=== PATIENT | male | born 1980 | race Caucasian/White ===

== ENCOUNTER 2020-02-26 15:00 | Outpatient (RCR) | payer OTHER, SELFPAY | END 2020-03-23 14:56 | disposition home or self-care (01) | LOC: OT 15:00 | PROVIDERS: PCP Family Medicine; Visit Provider Orthopaedic Surgery Adult Reconstructive Orthopaedic Surgery | DX: S63.286A Dislocation of proximal interphalangeal joint of right little finger, initial encounter (principal) | CPT/HCPCS: 97140; 97165 ==

== ENCOUNTER 2021-02-10 10:54 | Emergency (ER) | payer OTHER, SELFPAY ==
[2021-02-10 12:00] VITALS: BP 136/91; PULSE 76; RESP 18; TEMP 36.9; O2SAT 98; BMI 32.8
--- NOTE | 2021-02-10 12:48 | HMH.EDUTC ---
[facility] [place] Disposition Clinical Impression: Tick bite Qualifiers: Encounter type: initial encounter Site of tick bite: unspecified site Qualified Code(s): W57.XXXA - Bitten or stung by nonvenomous insect and other nonvenomous arthropods, initial encounter Disposition: Home, Self-Care Condition on Discharge: Good Instructions: How to Remove a Tick, DI for Lyme Disease, Doxycycline, Protect Yourself from Tickborne Illnesses Additional Instructions: Watch your blood sugars while on Doxy, doxy may make your blood sugar lower Follow up iwith your Family Doctor in the next 7-10 days you was given 10 days of antibiotics and may need more therefore see your family doctor prior to completing mediation to see if she wants you on a longer regimen Return if needeed Straight to ER if any life threatening symptoms Prescriptions: Doxycycline Monohydrate [Doxycycline [place] 100mg Tab] 100 mg PO Q12 10 Days #20 tab Transmission Status: Pending to [id number] Referrals: Provider,Referral, MD [Primary Care Provider] - As needed Time of Disposition: 12:59 Medical Decision Making - Eze Inquiry Pt receiving controlled substance: No Eze was queried for this patient: No Vital Signs: 02/10/21 12:00 Temperature 98.4 F Temperature Source Oral Pulse Rate [Right Brachial] 76 Respiratory Rate 18 Blood Pressure [Right Arm] 136/91 H Blood Pressure Mean [Right Arm] 106 Blood Pressure Source [Right Arm] Automatic Cuff Blood Pressure Position [Right Arm] Sitting 02 Sat by Pulse Oximetry 98 Oxygen Delivery Method Room Air [facility] [place] HPI - General Stated complaint: possible tick bite Time Seen by Provider: 02/10/21 12:48 Mode of Arrival: Ambulatory Source of Information: Patient Limitations: No Limitations Description of Symptoms (Recalled from Triage Doc. by RN): PATIENT STATES HE WENT [employer]UNTING ON SUNDAY AND GOT 2 TICK BITES TO RIGHT SIDE. REDNESS AND SWELLING AROUND BITES HEENT Symptoms (Recalled from RN notes): No Resp Symptoms (Recalled from RN notes): No Skin Symptoms (Recalled from RN notes): Yes MS Symptoms (Recalled from RN notes): No Functional Status (Recalled from RN notes): WNL - History of Present Illness Provider Complaint: Patient states that he recently went hunting and he had several ticks on his abdomen and he pulled them off States that he doesnt think he left any pieces in but now he is having a red raised rash around the bite sites and concerned with tick borne illness so he came in - Related Data Home Medications Medication Instructions Recorded Confirmed Fenofibrate [Tricor 54mg tablet] 54 mg PO DAILY 02/10/21 02/10/21 Losartan Potassium [Cozaar 25mg 12.5 mg PO DAILY 02/10/21 02/10/21 Tablets] Metformin HCl 1,000 mg PO BID 02/10/21 02/10/21 Simvastatin [Zocor 20mg] 20 mg PO HS 02/10/21 02/10/21 carvediloL [Carvedilol 25mg Tab] 25 mg PO BID 02/10/21 02/10/21 cloNIDine HCL [cloNIDine 0.1mg 0.1 mg PO DAILY 02/10/21 02/10/21 Tablet] glipiZIDE [Glipizide] 20 mg PO BID 02/10/21 02/10/21 hydroCHLOROthiazide [HCTZ 25mg 25 mg PO DAILY 02/10/21 02/10/21 tab] Previous Rx's Medication Instructions Recorded Doxycycline Monohydrate 100 mg PO Q12 10 Days #20 tab 02/10/21 [Doxycycline [place] 100mg Tab] Allergies Allergy/AdvReac Type Severity Reaction Status Date / Time No Known Allergies Allergy Verified 02/10/21 12:18 - Worker's Comp Is this a Worker's Comp case?: No [facility] History - Hepatitis A Screen Drug use history?: No High risk sexual behaviors?: No History of sexually transmitted infection?: No Currently employed?: No Childcare worker?: No Do you have indoor plumbing?: Yes Do you have electricity?: Yes Attestation statement:: This patient has been screened for Hepatitis A risk factors. I have reviewed the patient's past medical history: Yes ROS Obtained: Yes All systems reviewed & no additional complaints, Yes Systems reviewed as appropriate & no carl
[2021-02-10 13:17] VITALS: BP 136/91; PULSE 76; RESP 18; TEMP 36.9; O2SAT 98
[2021-02-15 01:40] LABS: Rocky Mtn Spotted Fever, IgM 0.91 index (0.00-0.89)
[2021-02-15 23:07] LABS: Lyme B. burgdorferi PCR Blood Negative (Negative)
== END 2021-02-10 13:23 | disposition home or self-care (01) ==
PROVIDERS: Emergency Provider Nurse Practitioner
DX: S30.861A Insect bite (nonvenomous) of abdominal wall, initial encounter (principal); W57.XXXA Bitten or stung by nonvenomous insect and other nonvenomous arthropods, initial encounter
CPT/HCPCS: 86609; 86618; 87476; 99202; G0463

== ENCOUNTER 2022-05-25 08:01 | Emergency (ER) | payer OTHER, SELFPAY ==
[2022-05-25 08:10] VITALS: BP 133/87; PULSE 76; RESP 20; TEMP 37.1; O2SAT 96; BMI 33.0
--- NOTE | 2022-05-25 08:25 | EXP.UTC ---
Discharge Plan Disposition Patient Disposition: Home, Self-Care Condition: Good Prescriptions Prescriptions: New doxycycline hyclate [doxycycline hyclate] 100 mg capsule 100 mg PO Q12 10 Days Qty: 20 0RF mupirocin 2 % ointment 1 applic topical TID 7 Days Qty: 15 0RF No Action metformin 500 MG tablet 1,000 mg PO BID clonidine HCl 0.1 MG tablet 0.1 mg PO DAILY glipizide 10 MG tablet 20 mg PO BID simvastatin 20 MG tablet 20 mg PO HS losartan 25 MG tablet 12.5 mg PO DAILY hydrochlorothiazide 25 MG tablet 25 mg PO DAILY carvedilol 25 MG tablet 25 mg PO BID fenofibrate 54 MG tablet 54 mg PO DAILY Referrals Follow up/Referrals: Sadie Cotter APRN [Primary Care Provider] - See instructions Activity Restrictions/Add. Instructions Additional Instructions/Restrictions: Apply warm wet compresses to the affected sites three or four times per day for 15 minutes as tolerated. Take the antibiotics as directed. Follow up with your regular doctor. GO TO THE ER FOR ANY WORSENING SYMPTOMS OR CONCERNS Clinical Impressions Clinical Impression: Infection of scalp, Lymphadenopathy Discharge ED Provider: Dejon De La Torre [facility] General Stated complaint: Knots on head/neck Mode of Arrival: Ambulatory Source of Information: Patient Limitations: No Limitations Time Seen by Provider: 05/25/22 08:24 Description of Symptoms (Recalled from Triage Doc. by RN): lumps on head and neck recently occured with 1 wk HEENT Symptoms (Recalled from RN notes): No Resp Symptoms (Recalled from RN notes): No Skin Symptoms (Recalled from RN notes): Yes MS Symptoms (Recalled from RN notes): No Functional Status (Recalled from RN notes): n/a History of Present Illness Provider Complaint: He states that for the past 4 to 5 days he has had several tender knots come up on the back of his head and the right side of his neck. He first noticed a scabbed area on the back of his scalp, then the other lesions began to develop. He denies any fever/chills. He denies any known tick bites. Related Data Home Medications Medication Instructions Recorded Confirmed carvedilol 25 mg tablet 25 mg PO BID Hypertension 02/10/21 05/25/22 clonidine HCl 0.1 mg tablet 0.1 mg PO DAILY Hypertension 02/10/21 05/25/22 fenofibrate 54 mg tablet 54 mg PO DAILY Cholesterol 02/10/21 05/25/22 glipizide 10 mg tablet 20 mg PO BID Diabetes 02/10/21 05/25/22 hydrochlorothiazide 25 mg tablet 25 mg PO DAILY Hypertension 02/10/21 05/25/22 losartan 25 mg tablet 12.5 mg PO DAILY Hypertension 02/10/21 05/25/22 metformin 500 mg tablet 1,000 mg PO BID Diabetes 02/10/21 05/25/22 simvastatin 20 mg tablet 20 mg PO HS Cholesterol 02/10/21 05/25/22 Previous Rx's Medication Instructions Recorded doxycycline hyclate 100 mg capsule 100 mg PO Q12 10 days #20 caps 05/25/22 mupirocin 2 % topical ointment 1 applic topical TID 7 days #15 05/25/22 grams Allergies Allergy/AdvReac Type Severity Reaction Status Date / Time No Known Allergies Allergy Verified 05/25/22 08:22 Worker's Comp Is this a Worker's Comp case?: No [facility] Disclaimer: The information contained in this section may have been updated after the patient was seen, as this information can be updated by other users. Social History Smoking Status: Current every day smoker alcohol intake: never current occupational status: employed Travel in the last 8 weeks: None ROS Obtained: Yes All systems reviewed & no additional complaints except as documented Constitutional Constitutional: Denies chills and Denies fever(s) Eyes Eyes: Denies eye discharge ENT Ears, Nose, Mouth, and Throat: Denies dizziness, Denies otalgia and Denies sore throat Cardiovascular Cardiovascular: Denies chest pain Respiratory Respiratory: Denies shortness of breath, Denies chest congestion, Denies cough, Denies st
[2022-05-25 09:00] VITALS: BP 133/87; PULSE 76; RESP 20; TEMP 37.1; O2SAT 96
== END 2022-05-25 09:00 | disposition home or self-care (01) ==
PROVIDERS: Emergency Provider Nurse Practitioner Family; PCP Nurse Practitioner Family
DX: L08.9 Local infection of the skin and subcutaneous tissue, unspecified (principal); R59.1 Generalized enlarged lymph nodes
CPT/HCPCS: 99212; 99213; G0463

== ENCOUNTER 2023-07-14 09:26 | Emergency (ER) | payer OTHER, SELFPAY ==
--- NOTE | 2023-07-14 09:39 | EXP.UTC ---
Discharge Plan Disposition Patient Disposition: Home, Self-Care Condition: Good Prescriptions Prescriptions: New ondansetron 4 mg Tablet,Disintegrating 4 mg PO Q8H PRN (Reason: Nausea) Qty: 9 0RF No Action Ozempic 0.25 mg or 0.5 mg (2 mg/3 mL) pen injector See Rx Instructions .ROUTE .COMPLEX Patient Comments: INJECT 0.5 MG SUBCUTANEOUSLY ONCE A WEEK Rx Instructions: INJECT 0.5 MG SUBCUTANEOUSLY ONCE A WEEK metformin 500 MG tablet 1,000 mg PO BID clonidine HCl 0.1 MG tablet 0.1 mg PO DAILY glipizide 10 MG tablet 20 mg PO BID simvastatin 20 MG tablet 20 mg PO HS losartan 25 MG tablet 12.5 mg PO DAILY hydrochlorothiazide 25 MG tablet 25 mg PO DAILY carvedilol 25 MG tablet 25 mg PO BID fenofibrate 54 MG tablet 54 mg PO DAILY Referrals Follow up/Referrals: Sadie Cotter APRN [Primary Care Provider] - See instructions Activity Restrictions/Add. Instructions Additional Instructions/Restrictions: Drink plenty of fluids. Take tylenol or ibuprofen for pain or fever. Take the zofran as directed for nausea. Follow up with your regular doctor. Return a stool sample so it can be analyzed for c. diff. and other infections. GO TO THE ER FOR ANY WORSENING SYMPTOMS Clinical Impressions Clinical Impression: Acute viral syndrome Instructions Patient Instructions: DI for Viral Syndrome, Ondansetron Discharge ED Provider: Dejon De La Torre [facility] [place] General Stated complaint: diarrhea, fever, nausea, aches Time Seen by Provider: 07/14/23 09:39 History of Present Illness Provider Complaint: He states that for the past 3 days he has had diarrhea, low grade fever, nausea and body aches. He has been around his mother who currently has sapovirus and c.diff. He denies being on antibiotic recently. Related Data Home Medications Medication Instructions Recorded Confirmed carvedilol 25 mg tablet 25 mg PO BID Hypertension 02/10/21 07/14/23 clonidine HCl 0.1 mg tablet 0.1 mg PO DAILY Hypertension 02/10/21 07/14/23 fenofibrate 54 mg tablet 54 mg PO DAILY Cholesterol 02/10/21 07/14/23 glipizide 10 mg tablet 20 mg PO BID Diabetes 02/10/21 07/14/23 hydrochlorothiazide 25 mg tablet 25 mg PO DAILY Hypertension 02/10/21 07/14/23 losartan 25 mg tablet 12.5 mg PO DAILY Hypertension 02/10/21 07/14/23 metformin 500 mg tablet 1,000 mg PO BID Diabetes 02/10/21 07/14/23 simvastatin 20 mg tablet 20 mg PO HS Cholesterol 02/10/21 07/14/23 semaglutide 0.25 mg or 0.5 mg (2 See Rx Instructions .Route .COMPLEX 07/14/23 07/14/23 mg/3 mL) subcutaneous pen injector (Ozempic) Previous Rx's Medication Instructions Recorded ondansetron 4 mg disintegrating 4 mg PO Q8H PRN Nausea #9 tabs 07/14/23 tablet Allergies Allergy/AdvReac Type Severity Reaction Status Date / Time No Known Allergies Allergy Verified 07/14/23 09:54 [facility] Disclaimer: The information contained in this section may have been updated after the patient was seen, as this information can be updated by other users. Social History (Updated 05/25/22 @ 09:18 by Dejon De La Torre APRN) Smoking Status: Current every day smoker alcohol intake: never current occupational status: employed Travel in the last 8 weeks: None ROS Obtained: Yes All systems reviewed & no additional complaints except as documented Constitutional Constitutional: Denies chills, Denies fever(s) and Reports poor appetite ENT Ears, Nose, Mouth, and Throat: Denies dizziness and Denies sore throat Cardiovascular Cardiovascular: Denies dyspnea Respiratory Respiratory: Denies chest congestion, Denies cough and Denies dyspnea Gastrointestinal Gastrointestingal: Reports as per HPI; Denies abdominal pain Musculoskeletal Musculoskeletal: Denies arthralgias Integumentary/Breasts Skin/Breast: Denies rash Neurologic Neurologic: Denies dizziness Physical Exam General General appearance: alert and in no apparent distress Head Head exam: atraumatic and normocephalic Eye Eye exam: Present normal appearance, PERRL and EOMI ENT ENT exam: Present normal exam, normal oropharynx, mucous membranes moist, TM's normal bilaterally and normal external ear exam Neck Neck exam: Present normal inspection, full ROM and trachea midline; Absent tenderness, meningismus or lymphadenopathy Chest Chest inspection: Present normal inspection and symmetric chest wall rise; Absent tenderness, rash or abscess Respiratory Respiratory exam: Present normal lung sounds bilaterally; Absent respiratory distress, wheezes or stridor Cardiovascular Cardiovascular exam: Present regular rate and normal rhythm; Absent irregular rhythm, systolic murmur, diastolic murmur or JVD Abdominal Exam Abdominal exam: Present soft and hyperactive bowel sounds; Absent distention, tenderness, guarding, rebound, rigidity, psoas sign, obturator sign, heel tap sign, Jean's sign, Rovsing's sign or tenderness at McBurney's Point Extremities Exam Extremities exam: Present normal inspection and full ROM; Absent tenderness Back Exam Back exam: Present normal inspection and full ROM; Absent tenderness, CVA tenderness (R) or CVA tenderness (L) Neurological Exam Neurological exam: Present alert, oriented X3 and CN II-XII intact Psychiatric Psychiatric exam: Present normal affect and normal mood Skin Skin exam: Present warm, dry, intact and normal color Lymphatic Lymphatic Findings: no adenopathy Medical Decision Making Medical Records Medical records reviewed: No I reviewed the patient's medical records. Eze Inquiry Pt receiving controlled substance: No Lab Data Lab results reviewed: Yes I reviewed the patient's lab results.
[2023-07-14 09:40] VITALS: BP 118/77; PULSE 79; RESP 18; TEMP 36.6; O2SAT 97; BMI 34.8
[2023-07-14 10:00] LABS: UTC Influenza A Antigen Negative (Negative); UTC Influenza B Antigen Negative (Negative)
[2023-07-14 10:27] VITALS: BP 118/77; PULSE 79; RESP 18; TEMP 36.6; O2SAT 97
--- NOTE | 2023-07-14 10:28 | PC.NURSE ---
Gave pt supplies for diarrhea panel.
[2023-07-14 11:27] LABS: Adenovirus F 40/41, stool Not Detected (NotDetected); Campylobacter Not Detected (NotDetected); Clostridium Difficile A/B, PCR Not Detected (NotDetected); Cryptosporidium Not Detected (NotDetected); Cyclospora Cayetanesis Not Detected (NotDetected); Entamoeba histolytica Not Detected (NotDetected); Enteroaggregative E coli Not Detected (NotDetected); Enteropathogenic E coli Not Detected (NotDetected); Enterotoxigenic E coli Not Detected (NotDetected); Giardia lamblia Not Detected (NotDetected); Norovirus Not Detected (NotDetected); Plesimonas Shigalloides, PCR Not Detected (NotDetected); Rotavirus A Not Detected (NotDetected); Salmonella, PCR Not Detected (NotDetected); Shiga-like toxin E coli Not Detected (NotDetected); Shigella Enterovasive E coli Not Detected (NotDetected); Vibrio Cholerae Not Detected (NotDetected); Vibrio, PCR Not Detected (NotDetected); Yersinia Entercolitica, PCR Not Detected (NotDetected)
[2023-07-17 09:05] LABS: Astrovirus Detected (NotDetected); Sapovirus Not Detected (NotDetected)
== END 2023-07-14 10:27 | disposition home or self-care (01) ==
PROVIDERS: Emergency Provider Nurse Practitioner Family; PCP Nurse Practitioner Family
DX: A08.32 Astrovirus enteritis (principal); R19.7 Diarrhea, unspecified; R50.9 Fever, unspecified; R11.0 Nausea; F17.210 Nicotine dependence, cigarettes, uncomplicated
CPT/HCPCS: 87507; 87804; 99212; 99214; G0463

== ENCOUNTER 2025-03-25 08:00 | Outpatient (RCR) | payer OTHER, SELFPAY | END 2025-03-25 23:59 | disposition home or self-care (01) | LOC: PT.CARL 08:00 | PROVIDERS: PCP Nurse Practitioner Family; Visit Provider Orthopaedic Surgery | DX: M54.16 Radiculopathy, lumbar region (principal) | CPT/HCPCS: 97012; 97014; 97032; 97110; 97112; 97140; 97161; G0283 ==